=== PATIENT | female | born 1980 | race Hispanic/Latino ===

== ENCOUNTER 2017-01-04 14:46 | Emergency (ER) | payer OTHER, SELFPAY ==
[2017-01-04 15:48] VITALS: BP 103/64; PULSE 81; RESP 16; TEMP 98.6; O2SAT 100
--- NOTE | 2017-01-04 16:37 | ED PDOC ---
HPI: General Adult Time Seen by Provider: 01/04/17 15:51 Chief Complaint (Nursing): Flu-like Symptoms Chief Complaint (Provider): Sore Throat History Per: Patient History/Exam Limitations: no limitations Onset/Duration Of Symptoms: Days (x5) Current Symptoms Are (Timing): Still Present Severity: Mild Additional Complaint(s): Patient is a 36 year old female presenting to the ED complaining of sore throat x5 days. Sore throat is associated with congestion, cough with yellow sputum, body aches, and chills. Patient reports fever x5 days ago but resolved x3 days ago. Patient took Sudafed without relief. Patient also complains of vaginal itchiness and white discharge for the past couple of weeks. Patient has an f/u appointment with her [employer] next week. PT states she used monastat but it did not help. PMD: none Past Medical History Reviewed: Historical Data, Nursing Documentation, Vital Signs Vital Signs: Last Vital Signs Temp 98.6 F 01/04/17 15:46 Pulse 81 01/04/17 15:46 Resp 16 01/04/17 15:46 BP 103/64 01/04/17 15:46 Pulse Ox 100 01/04/17 18:41 - Medical History PMH: No Chronic Diseases - Surgical History Other surgeries: Breast implants - Family History Family History: States: No Known Family Hx - Home Medications Home Medications: Ambulatory Orders Medication Instructions Recorded Doxycycline Monohydrate 100 mg PO BID #14 tablet 01/02/16 Phenazopyridine [Pyridium] 100 mg PO BID #6 tab 01/02/16 metroNIDAZOLE [Flagyl] 500 mg PO TID #21 tab 01/02/16 Fluconazole [Diflucan] 150 mg PO ONCE #1 tab 01/04/17 - Allergies Allergies/Adverse Reactions: Allergies Allergy/AdvReac Type Severity Reaction Status Date / Time No Known Allergies Allergy Verified 01/04/17 15:43 Review of Systems ROS Statement: Except As Marked, All Systems Reviewed And Found Negative Constitutional: Positive for: Fever, Chills, Other (body aches) ENT: Positive for: Nose Congestion Respiratory: Positive for: Cough, Sputum (yellow) Genitourinary Female: Positive for: Vaginal Discharge Physical Exam - Reviewed Nursing Documentation Reviewed: Yes Vital Signs Reviewed: Yes - Physical Exam Appears: Positive for: Well, Non-toxic, No Acute Distress Head Exam: Positive for: ATRAUMATIC, NORMAL INSPECTION, NORMOCEPHALIC Skin: Positive for: Normal Color, Warm, DRY ENT: Positive for: Normal ENT Inspection Cardiovascular/Chest: Positive for: Regular Rate, Rhythm. Negative for: Gallop , Murmur Respiratory: Positive for: Normal Breath Sounds. Negative for: Accessory Muscle Use, Rhonchi, Respiratory Distress Pelvic Exam: Positive for: Other (Deferred ) Extremity: Positive for: Normal ROM Neurologic/Psych: Positive for: Alert, Oriented - ECG O2 Sat by Pulse Oximetry: 100 (RA) Pulse Ox Interpretation: Normal Medical Decision Making Medical Decision Making: Time: 15:55 Impression: 1. URI v Influenza v Strep 2. Yeast infection Plan: Influenza A B Stat Rapid Strep Group A Antigen Rx given. Patient advised to follow up with PMD in 1-2 days. Discussed results and plan with patient who expresses understanding. Counseling was provided regarding the diagnosis and prognosis. All questions answered and there is agreement with the plan to discharge home with instructions. Patient stable for discharge. Return if symptoms persist or worsen. Scribe Attestation: Documented by Stuart Jacobs acting as a scribe for Marisol Horton. Provider Attestation: All medical record entries made by the Scribe were at my direction and personally dictated by me. I have reviewed the chart and agree that the record accurately reflects my personal performance of the history, physical exam, medical decision making, and the department course for this patient. I have also personally directed, reviewed, and agree with the discharge instructions and disposition. Disposition - Clinical Impression Clinical Impression: Influenza-like symptoms, Vaginal candidiasis - Patient ED Disposition Is Patient to be Admitted: No Counseled Patient/Family Regarding: Studies Performed, Diagnosis, Need For Followup, Rx Given - Disposition Disposition: Routine/Home Disposition Time: 18:47 Condition: STABLE Prescriptions: Fluconazole [Diflucan] 150 mg PO ONCE #1 tab Instructions: Viral Syndrome (ED)
--- NOTE | 2017-01-05 11:41 | RAD ---
HISTORY: cough, fever COMPARISON: No prior. TECHNIQUE: Chest PA and lateral FINDINGS: LUNGS: The lungs are well inflated and clear. PLEURA: No significant pleural effusion identified. No pneumothorax apparent. CARDIOVASCULAR: The heart is normal in size. OSSEOUS STRUCTURES: No significant abnormalities. VISUALIZED UPPER ABDOMEN: Normal. OTHER FINDINGS: None. IMPRESSION: No active pulmonary disease.
== END 2017-01-04 19:02 | disposition home or self-care (01) ==
LOC: H.ER 14:46
DX: B37.3 Candidiasis of vulva and vagina (principal); R50.9 Fever, unspecified; R05 Cough

== ENCOUNTER 2017-05-06 14:38 | Emergency (ER) | payer SELFPAY ==
[2017-05-06 14:44] VITALS: BP 112/71; PULSE 62; RESP 18; TEMP 97.5; O2SAT 100
--- NOTE | 2017-05-06 15:14 | ED PDOC ---
HPI: Female Pain Time Seen by Provider: 05/06/17 15:05 Chief Complaint (Nursing): Female Genitourinary Chief Complaint (Provider): vaginal discharge History Per: Patient (37 y/o female here with complaint of intermittent vaginal discharge x few weeks. Patient was seen at clinic with diflucan 150 mg x 2 doses. Last used monistat 2 weeks ago. States symptoms improved but then returned with period. Denies any dysuria.) Past Medical History Reviewed: Historical Data, Nursing Documentation, Vital Signs Vital Signs: Last Vital Signs Temp 97.5 F L 05/06/17 14:42 Pulse 62 05/06/17 14:42 Resp 18 05/06/17 14:42 BP 112/71 05/06/17 14:42 Pulse Ox 100 05/06/17 14:42 - Medical History PMH: Anemia - Family History Family History: States: Unknown Family Hx - Home Medications Home Medications: Ambulatory Orders Medication Instructions Recorded Doxycycline Monohydrate 100 mg PO BID #14 tablet 01/02/16 Phenazopyridine [Pyridium] 100 mg PO BID #6 tab 01/02/16 metroNIDAZOLE [Flagyl] 500 mg PO TID #21 tab 01/02/16 Fluconazole [Diflucan] 150 mg PO ONCE #1 tab 01/04/17 Terconazole [Terazol 7 (0.4%)CREAM] 1 applic TOP DAILY #1 tube 05/06/17 - Allergies Allergies/Adverse Reactions: Allergies Allergy/AdvReac Type Severity Reaction Status Date / Time No Known Allergies Allergy Verified 05/06/17 14:40 Review of Systems ROS Statement: Except As Marked, All Systems Reviewed And Found Negative Physical Exam - Reviewed Nursing Documentation Reviewed: Yes Vital Signs Reviewed: Yes - Physical Exam Appears: Positive for: Well, Non-toxic, No Acute Distress Head Exam: Positive for: ATRAUMATIC, NORMAL INSPECTION, NORMOCEPHALIC Skin: Positive for: Normal Color, Warm, DRY Eye Exam: Positive for: EOMI, Normal appearance, PERRL ENT: Positive for: Normal ENT Inspection Neck: Positive for: Normal, Painless ROM Cardiovascular/Chest: Positive for: Regular Rate, Rhythm Respiratory: Positive for: CNT, Normal Breath Sounds Gastrointestinal/Abdominal: Positive for: Normal Exam, Bowel Sounds, Soft Pelvic Exam: Positive for: Discharge (whitish discharge) Back: Positive for: Normal Inspection Extremity: Positive for: Normal ROM Neurologic/Psych: Positive for: Alert, Oriented - ECG O2 Sat by Pulse Oximetry: 100 Disposition - Clinical Impression Clinical Impression: Vaginal candidiasis - Patient ED Disposition Is Patient to be Admitted: No - Disposition [facility] Disposition: Routine/Home Disposition Time: 15:33 Condition: STABLE Prescriptions: Terconazole [Terazol 7 (0.4%)CREAM] 1 applic TOP DAILY #1 tube Instructions: Vulvovaginal Candidiasis (ED) Print Language: SAMI
== END 2017-05-06 15:33 | disposition home or self-care (01) ==
LOC: H.ER 14:38
DX: N89.8 Other specified noninflammatory disorders of vagina (principal); D64.9 Anemia, unspecified

== ENCOUNTER 2017-07-16 14:44 | Emergency (ER) | payer SELFPAY ==
[2017-07-16 14:49] VITALS: BP 117/43; PULSE 79; RESP 16; TEMP 99.8; O2SAT 100
--- NOTE | 2017-07-16 15:02 | ED PDOC ---
HPI: Skin/Bite Injury Time Seen by Provider: 07/16/17 14:53 Chief Complaint (Nursing): Bite Chief Complaint (Provider): Bite History Per: Patient Onset/Duration Of Symptoms: Days (x2) Additional Complaint(s): Janene Edwards is a 37 year old female presenting to the ED for an evaluation of a cat bite occurring 2 days prior to arrival. The patient owns the cat. She states the cat tried to climb something and she tried to get the cat down. In turn she was bitten and scratched. She reports the cat is up to date with vaccinations. Of note, the patients Tetanus is not up to date. PMD: Provider TBD Past Medical History Reviewed: Historical Data, Nursing Documentation, Vital Signs Vital Signs: Last Vital Signs Temp 99.8 F H 07/16/17 14:47 Pulse 79 07/16/17 14:47 Resp 16 07/16/17 14:47 BP 117/43 L 07/16/17 14:47 Pulse Ox 100 07/16/17 15:06 - Medical History PMH: Anemia - Family History Family History: States: Unknown Family Hx - Social History Current smoker - smoking cessation education provided: No Ex-Smoker (has not smoked in the last 12 months): No Alcohol: None Drugs: Denies - Home Medications Home Medications: Ambulatory Orders Medication Instructions Recorded Doxycycline Monohydrate 100 mg PO BID #14 tablet 01/02/16 Phenazopyridine [Pyridium] 100 mg PO BID #6 tab 01/02/16 metroNIDAZOLE [Flagyl] 500 mg PO TID #21 tab 01/02/16 Fluconazole [Diflucan] 150 mg PO ONCE #1 tab 01/04/17 Terconazole [Terazol 7 (0.4%)CREAM] 1 applic TOP DAILY #1 tube 05/06/17 Amoxicillin/Clavulanate [Augmentin 1 tab PO BID #20 tab 07/16/17 875 MG-125 MG] - Allergies Allergies/Adverse Reactions: Allergies Allergy/AdvReac Type Severity Reaction Status Date / Time No Known Allergies Allergy Verified 07/16/17 14:47 Review of Systems ROS Statement: Except As Marked, All Systems Reviewed And Found Negative Skin: Positive for: Other (cat bite and scratches ) Physical Exam - Reviewed Nursing Documentation Reviewed: Yes Vital Signs Reviewed: Yes - Physical Exam Appears: Positive for: Non-toxic, No Acute Distress Head Exam: Positive for: ATRAUMATIC, NORMOCEPHALIC Extremity: Positive for: Other (punctured wounds on right hand without surrounding erythema ) Neurologic/Psych: Positive for: Alert, Oriented - ECG O2 Sat by Pulse Oximetry: 100 (RA) Pulse Ox Interpretation: Normal Medical Decision Making Medical Decision Making: Time: 14:53 Impression: Bite Plan: * Adacel 0.5 ml IM Scribe Attestation: Documented by Ibis Frazier, acting as a scribe for Marisol Horton PA-C. Provider Scribe Attestation: All medical record entries made by the Scribe were at my direction and personally dictated by me. I have reviewed the chart and agree that the record accurately reflects my personal performance of the history, physical exam, medical decision making, and the department course for this patient. I have also personally directed, reviewed, and agree with the discharge instructions and disposition. Disposition - Clinical Impression Clinical Impression: Animal bite, Tetanus toxoid vaccination administered at current visit - Disposition Disposition Time: 15:18 Condition: STABLE Prescriptions: Amoxicillin/Clavulanate [Augmentin 875 MG-125 MG] 1 tab PO BID #20 tab Instructions: Acute Wound Care (ED) Forms: [employer] (Latvian)
== END 2017-07-16 15:19 | disposition home or self-care (01) ==
LOC: H.ER 14:44
DX: Z23 Encounter for immunization (principal)

== ENCOUNTER 2017-09-22 15:33 | Emergency (ER) | payer SELFPAY ==
[2017-09-22 15:45] VITALS: BP 118/59; PULSE 74; RESP 16; TEMP 98.6; O2SAT 100
--- NOTE | 2017-09-22 17:29 | ED PDOC ---
HPI: CCC, URI, Sore Throat Time Seen by Provider: 09/22/17 16:02 Chief Complaint (Nursing): ENT Problem Chief Complaint (Provider): Sore throat, bodyaches, dry cough, runny nose History Per: Patient History/Exam Limitations: no limitations Have you had recent travel within the past 21 days to any of the following countries: [place], [place], [place] or [place]?: No Onset/Duration Of Symptoms: Days Current Symptoms Are (Timing): Still Present Location Of Pain: Throat Sick Contacts (Context): None Associated Symptoms: Sore Throat, Cough, Myalgias. denies: Fever, Chills, Sputum Ear Symptoms: Bilateral: None Additional Complaint(s): Pt states she felt feverish at home yesterday. Pt did nto take antipyretics at home. Past Medical History Reviewed: Historical Data, Nursing Documentation, Vital Signs Vital Signs: Last Vital Signs Temp 98.6 F 09/22/17 15:42 Pulse 74 09/22/17 15:42 Resp 16 09/22/17 15:42 BP 118/59 L 09/22/17 15:42 Pulse Ox 100 09/22/17 15:42 - Medical History PMH: Anemia - Surgical History Surgical History: No Surg Hx - Family History Family History: States: Unknown Family Hx - Living Arrangements Living Arrangements: With Family - Social History Current smoker - smoking cessation education provided: No Alcohol: None Drugs: Denies - Home Medications Home Medications: Ambulatory Orders Medication Instructions Recorded Doxycycline Monohydrate 100 mg PO BID #14 tablet 01/02/16 Phenazopyridine [Pyridium] 100 mg PO BID #6 tab 01/02/16 metroNIDAZOLE [Flagyl] 500 mg PO TID #21 tab 01/02/16 Fluconazole [Diflucan] 150 mg PO ONCE #1 tab 01/04/17 Terconazole [Terazol 7 (0.4%)CREAM] 1 applic TOP DAILY #1 tube 05/06/17 Amoxicillin/Clavulanate [Augmentin 1 tab PO BID #20 tab 07/16/17 875 MG-125 MG] Guaifen/Phenyleph/Acetaminophn 1 tab PO BID #14 tab 09/22/17 [Mucinex Fast-Max Cold & Sinus 325 mg-200 mg-5] - Allergies Allergies/Adverse Reactions: Allergies Allergy/AdvReac Type Severity Reaction Status Date / Time No Known Allergies Allergy Verified 07/16/17 14:47 Review of Systems ROS Statement: Except As Marked, All Systems Reviewed And Found Negative Constitutional: Negative for: Fever, Chills ENT: Positive for: Nose Congestion, Throat Pain. Negative for: Ear Pain Respiratory: Positive for: Cough. Negative for: Shortness of Breath Gastrointestinal: Negative for: Nausea, Vomiting, Abdominal Pain Skin: Negative for: Rash Physical Exam - Reviewed Nursing Documentation Reviewed: Yes Vital Signs Reviewed: Yes - Physical Exam Appears: Positive for: Well, Non-toxic, No Acute Distress Head Exam: Positive for: ATRAUMATIC, NORMAL INSPECTION, NORMOCEPHALIC Skin: Positive for: Normal Color, Warm, DRY Eye Exam: Positive for: Normal appearance ENT: Positive for: Normal ENT Inspection Neck: Positive for: Normal, Painless ROM Cardiovascular/Chest: Positive for: Regular Rate, Rhythm Respiratory: Positive for: Normal Breath Sounds. Negative for: Accessory Muscle Use Back: Positive for: Normal Inspection Extremity: Positive for: Normal ROM. Negative for: Tenderness Neurologic/Psych: Positive for: Alert, Oriented - ECG O2 Sat by Pulse Oximetry: 100 Pulse Ox Interpretation: Normal Disposition - Clinical Impression Clinical Impression: Common cold - Patient ED Disposition Is Patient to be Admitted: No Counseled Patient/Family Regarding: Diagnosis, Need For Followup - Disposition Disposition: Routine/Home Disposition Time: 17:30 Condition: GOOD Prescriptions: Guaifen/Phenyleph/Acetaminophn [Mucinex Fast-Max Cold & Sinus 325 mg-200 mg-5] 1 tab PO BID #14 tab Instructions: Cold Symptoms (ED)
== END 2017-09-22 17:35 | disposition home or self-care (01) ==
LOC: H.ER 15:33
DX: J00 Acute nasopharyngitis [common cold] (principal)